=== PATIENT | female | born 1950 | race Caucasian/White ===

== ENCOUNTER 2022-04-17 09:45 | Outpatient (CLI) | payer OTHER | END 2022-04-17 18:12 | disposition home or self-care (01) | LOC: SMA 09:45 | PROVIDERS: ATTEND Family Medicine | DX: Z12.31 Encounter for screening mammogram for malignant neoplasm of breast (principal) | CPT/HCPCS: 77067 ==

== ENCOUNTER 2023-04-30 10:28 | Outpatient (CLI) | payer OTHER | END 2023-04-30 19:35 | disposition home or self-care (01) | LOC: SMA 10:28 | PROVIDERS: ATTEND Family Medicine | DX: Z12.31 Encounter for screening mammogram for malignant neoplasm of breast (principal) | CPT/HCPCS: 77067 ==

== ENCOUNTER 2023-05-13 09:01 | Outpatient (CLI) | payer OTHER | END 2023-05-13 21:04 | disposition home or self-care (01) | LOC: SMA 09:01 | PROVIDERS: ATTEND Family Medicine | DX: R92.332 Mammographic heterogeneous density, left breast (principal); R92.8 Other abnormal and inconclusive findings on diagnostic imaging of breast; N64.89 Other specified disorders of breast | CPT/HCPCS: 76642; 77065 ==